=== PATIENT | female | born 1990 | race Caucasian/White ===

== ENCOUNTER 2017-02-13 18:47 | Emergency (ER) | payer BC ==
[2017-02-13 18:52] VITALS: BP 135/82
--- NOTE | 2017-02-13 19:07 | ER Document Report ---
HPI - HPI Patient complains to provider of: Again right ear Onset: This evening Onset/Duration: Sudden Pain Level: 1 Context: 26-year-old felt something crawl in her right ear while she was mowing the grass. She still feels movement or fluttering. Associated Symptoms: None Exacerbated by: Denies Relieved by: Denies Similar symptoms previously: No Recently seen / treated by doctor: No - ROS ROS below otherwise negative: Yes Systems Reviewed and Negative: Yes All other systems reviewed and negative - DERM Skin Color: Normal Past Medical History - General Information source: Patient - Social History Smoking Status: Never Smoker Frequency of alcohol use: None Drug Abuse: None Lives with: Family Family History: Reviewed & Not Pertinent Patient has suicidal ideation: No Patient has homicidal ideation: No - Medical History Medical History: Negative Renal/ Medical History: Denies: Hx Peritoneal Dialysis Surgical Hx: Negative Vertical Provider Document - INFECTION CONTROL TRAVEL OUTSIDE OF THE [place] IN LAST 30 DAYS: No - HEENT HEENT: Normocephalic Notes: tiny alive spider in right ear canal on top of the TM - NECK Neck: Supple - RESPIRATORY O2 Sat by Pulse Oximetry: 97 - NEURO Level of Consciousness: Awake, Alert - DERM Integumentary: Warm, Dry Course - Re-evaluation Re-evalutation: 02/13/17 19:20 Alcohol placed in right ear canal and the tiny spider crawled out. Canal and TM are normal after removal - Vital Signs Vital signs: Temp Pulse Resp BP Pulse Ox 98.3 F 81 16 135/82 H 97 02/13/17 18:51 02/13/17 18:51 02/13/17 18:51 02/13/17 18:51 02/13/17 18:51 Discharge - Discharge Clinical Impression: spider removal right ear canal Condition: Good Disposition: HOME, SELF-CARE Instructions: Foreign Object in the Ear ([facility]) Additional Instructions: to er any concerns
== END 2017-02-13 19:40 | disposition home or self-care (01) ==
LOC: ER 18:47
DX: T16.1XXA Foreign body in right ear, initial encounter (principal); X58.XXXA Exposure to other specified factors, initial encounter; Y93.H2 Activity, gardening and landscaping
CPT/HCPCS: 99282